=== PATIENT | male | born 1995 | race Caucasian/White ===

== ENCOUNTER 2019-09-07 16:36 | Outpatient (CLI) | payer OTHER, SELFPAY ==
--- NOTE | 2019-09-07 17:12 | XRR_ITS ---
PROCEDURE INFORMATION: Exam: XR Chest, 2 Views Exam date and time: 09/07/2019 5:12 PM Age: 23 years old Clinical indication: Patient HX: Cough / vomiting since July 13; Additional info: Bronchitis TECHNIQUE: Imaging protocol: XR of the chest Views: 2 views. COMPARISON: No relevant prior studies available. FINDINGS: Lungs: Unremarkable. No consolidation. Pleural space: Unremarkable. No pleural effusion. No pneumothorax. Heart/Mediastinum: Unremarkable. No cardiomegaly. Bones/joints: Unremarkable. XR/XR chest 2V* [id number] IMPRESSION: No acute findings.
== END 2019-09-07 16:37 | disposition home or self-care (01) ==
LOC: RAD 16:40
PROVIDERS: Family Provider Nurse Practitioner Family; PCP Nurse Practitioner Family; Visit Provider Family Medicine
DX: J40 Bronchitis, not specified as acute or chronic (principal)
CPT/HCPCS: 71046

== ENCOUNTER → 2019-10-06 14:42 | Outpatient (BNVA) | payer OTHER, SELFPAY | PROVIDERS: Visit Provider Nurse Practitioner Psychiatric/Mental Health | DX: F33.1 Major depressive disorder, recurrent, moderate (principal); F84.0 Autistic disorder | CPT/HCPCS: 99213 ==

== ENCOUNTER → 2019-12-31 07:19 | Outpatient (BNVA) | payer OTHER, SELFPAY | PROVIDERS: Visit Provider Nurse Practitioner Psychiatric/Mental Health | DX: F33.1 Major depressive disorder, recurrent, moderate (principal); F84.0 Autistic disorder | CPT/HCPCS: 99213 ==

== ENCOUNTER → 2020-02-09 07:28 | Outpatient (BNVA) | payer OTHER, SELFPAY | PROVIDERS: Visit Provider Nurse Practitioner Psychiatric/Mental Health | DX: F33.1 Major depressive disorder, recurrent, moderate (principal); F84.0 Autistic disorder; F33.2 Major depressive disorder, recurrent severe without psychotic features; F41.1 Generalized anxiety disorder | CPT/HCPCS: 99213 ==

== ENCOUNTER → 2020-05-03 07:27 | Outpatient (BNVA) | payer SELFPAY | PROVIDERS: Visit Provider Nurse Practitioner Psychiatric/Mental Health | DX: F33.1 Major depressive disorder, recurrent, moderate (principal); F84.0 Autistic disorder | CPT/HCPCS: 99213 ==

== ENCOUNTER → 2020-11-18 07:58 | Outpatient (BNVA) | payer OTHER, SELFPAY | PROVIDERS: Visit Provider Nurse Practitioner Psychiatric/Mental Health | DX: Z79.899 Other long term (current) drug therapy (principal) | CPT/HCPCS: 80053; 80061; 83036 ==

== ENCOUNTER 2021-03-09 02:41 | Emergency (ER) | payer SELFPAY ==
[2021-03-09 02:45] VITALS: BP 130/82; PULSE 93; RESP 16; TEMP 36.8; O2SAT 99; BMI 26.6
--- NOTE | 2021-03-09 02:51 | ED_ITS ---
HPI - General Adult General: Chief complaint: COVID symptoms Stated complaint: Flem\Running Nose\Cough\ Time Seen by Provider: 03/09/21 02:48 History of Present Illness: HPI narrative: This patient is a 25-year-old male who presents to the emergency department complaint of sore throat and cough tonight. Patient states he is had some phlegm in his cough. Patient states he just returned from a family member's . Started having low-grade temperatures today. Will do medical evaluation treat as needed Onset (ago): day(s) Radiation: non-radiation Severity: mild Associated symptoms: Deny chest pain, dyspnea, headache(s), nausea, rash, palpitations or vomiting Review of Systems General: Reports: 10 or more systems reviewed and unremarkable except in HPI and below Const: Denies: fever(s), chills, body aches or fatigue Eyes: Denies: change in vision or blurry vision ENMT: Reports: throat pain; Denies: hoarseness or mouth pain Card: Denies: chest pain, palpitations, irregular heart rhythm, edema, swelling of feet/ankles or lightheadedness Resp: Reports: non-productive cough; Denies: dyspnea, productive cough, wheezing or pain on inspiration GI: Denies: abdominal pain, nausea or vomiting : Denies: flank pain, dysuria, urinary frequency, urinary urgency or urinary hesitancy Musc: Denies: neck pain, back pain, extremity pain, extremity swelling, joint pain, joint swelling, joint redness, joint warmth or limited range of motion Skin/Breast: Denies: rash, pruritus, erythema or skin tenderness Neuro: Denies: headache(s), numbness in extremities or weakness in extremities Psych: Denies: anxiety or depression PFSH ED PFSH: Medical History Autism spectrum disorder, requiring support, without accompanying language impairment, with accompanying intellectual disability Chronic post-traumatic stress disorder Generalized anxiety disorder Major depressive disorder, recurrent episode, moderate with anxious distress Social History Smoking and tobacco status: former smoker Physical Exam Const: COMMON NORMALS: no acute distress, average body habitus, patient oriented x3, no limitations, healthy appearing, alert and well nourished HENMT: COMMON NORMALS: normocephalic, atraumatic, hearing grossly normal bilaterally, external ears normal, EAC's normal, TM's normal bilaterally, Normal external nose present, Normal nasal mucous membranes and turbinates present, moist oral mucous membranes, oropharynx normal, dentition normal and gingiva normal HEAD & SCALP: normocephalic and atraumatic NOSE: Normal external nose present and Normal nasal mucous membranes and turbinates present EXTERNAL EAR: Yes external ears normal EXTERNAL AUDITORY CANAL: EAC's normal TYMPANIC MEMBRANE: TM's normal bilaterally Neck/C-Spine: COMMON NORMALS: full ROM, no lymphadenopathy, supple, no meningeal signs, no JVD, Thyroid normal and No carotid bruits THYROID: Thyroid normal Chest: COMMONS NORMALS: normal inspection of the chest, normal palpation of entire chest wall, normal inspection of the breasts and normal palpation of the breasts Breast/axilla inspection: Yes normal inspection of the breasts BREAST/AXILLA PALPATION: Yes normal palpation of the breasts Resp: COMMON NORMALS: normal respiratory effort, No retractions, No use of accessory muscles, clear to auscultation bilaterally and percussion normal AUSCULTATION: clear to auscultation bilaterally PERCUSSION: percussion normal Cardio: COMMON NORMALS: no JVD, regular rate, regular rhythm, S1 normal heart sound present, S2 normal heart sound present, No gallops present (Cardio), No clicks present (Cardio), No murmurs present (Cardio), No rub (Cardio) and Peripheral pulses 2+ throughout RATE: regular rate RHYTHM: regular rhythm HEART SOUNDS: S1 normal heart sound present and S2 normal heart sound present PERIPHERAL PULSES: Peripheral pulses 2+ throughout GI: COMMON NORMALS: Normal to inspection, nondistended, normoactive bowel sounds present, Soft to palpation, non-tender, No hepatosplenomegaly present, no masses and no bruits PALPATION: Yes Soft to palpation and Yes No hepatosplenomegaly present : COMMON NORMALS: Yes no CVA tenderness BLADDER/KIDNEY EXAM: Yes no CVA tenderness Back/Pelvis: COMMON NORMALS: no CVA tenderness, thoracic and lumbar spine normal to inspection, no thoracic nor lumbar tenderness, thoraco-lumbar ROM normal and straight leg raise negative bilaterally Extremity: COMMON NORMALS: normal to inspection, full ROM, capillary refill normal, no joint enlargement, no clubbing, cyanosis or edema, no calf tenderness and no pedal edema Neuro: COMMON NORMALS: patient oriented x3 SENSORIUM/ORIENTATION: Yes alert MENINGEAL SIGNS: Yes no meningeal signs Course Reevaluation(s): Reevaluation #1: Negative for acute findings. Negative Covid. Patient has a viral upper respiratory infection. Encourage p.o. fluids cool-mist humidifier and [id number] antihistamines as needed. Follow-up with PCP in 2 to 3 days as needed Time: 03:17 Vital Signs: Vital signs: Vital Signs Temperature 98.3 F 03/09/21 02:45 Pulse Rate 93 03/09/21 02:45 Respiratory Rate 16 03/09/21 02:45 Blood Pressure 130/82 03/09/21 02:45 Pulse Oximetry 99 03/09/21 03:01 MDM - General Adult MDM Narrative: Medical decision making narrative: Negative for acute findings. Negative Covid. Patient has a viral upper respiratory infection. Encourage p.o. fluids cool-mist humidifier and [id number] antihistamines as needed. Follow-up with PCP in 2 to 3 days as needed Medical Records: Attestation: I reviewed the patient's medical records. Lab Data: Attestation: I reviewed the patient's lab results. Labs: Lab Results 03/09/21 Range/Units 02:52 SARS-CoV-2 Ag (Rap id) Negative (Negative) Discharge Plan Discharge Patient Disposition: Home Clinical Impression: Upper respiratory infection Condition: Stable Prescriptions: No Action quetiapine [Seroquel] 50 mg tablet 50 mg PO .bedtime Qty: 30 RF: 2 quetiapine [Seroquel] 25 mg tablet 25 mg PO DAILY PRN (Reason: anxiety/agitation) Qty: 30 RF: 1 Discharge Orders: Discharge ED (Routine); Ordered 03/09/21 Ordered By: Corey Armstrong Discharge Diet: Advance as tolerated Discharge Activity: Resume usual activity Patient Instructions: Opioid Safety Activity Restrictions/Additional Instructions: Negative Covid. Patient has a viral upper respiratory infection. Encourage p.o. fluids cool-mist humidifier and [id number] antihistamines as needed. Follow-up with PCP in 2 to 3 days as needed Coding Level of Care Code ED Front End Developer Javascript Html Css for Chg Fwd Exam Comprehensive
[2021-03-09 03:01] VITALS: O2SAT 99
[2021-03-09 03:15] LABS: SARS Covid-2 Antigen Negative (Negative)
[2021-03-09 03:21] LABS: Rapid Strep A Test Negative (Negative)
[2021-03-09 03:23] VITALS: BP 131/86; PULSE 81; RESP 18; O2SAT 99
== END 2021-03-09 03:24 | disposition home or self-care (01) ==
PROVIDERS: Emergency Provider Emergency Medicine
DX: J06.9 Acute upper respiratory infection, unspecified (principal); Z87.891 Personal history of nicotine dependence
CPT/HCPCS: 87081; 87426; 87880; 99282

== ENCOUNTER → 2022-04-02 09:14 | Outpatient (BNVA) | payer OTHER, SELFPAY | PROVIDERS: PCP Family Medicine; Visit Provider Nurse Practitioner Psychiatric/Mental Health | DX: Z03.89 Encounter for observation for other suspected diseases and conditions ruled out (principal); F84.0 Autistic disorder; F33.1 Major depressive disorder, recurrent, moderate; F41.1 Generalized anxiety disorder; F43.12 Post-traumatic stress disorder, chronic | CPT/HCPCS: 80053; 84443 ==

== ENCOUNTER 2022-11-23 07:40 | Emergency (ER) | payer SELFPAY ==
[2022-11-23 07:52] VITALS: BP 136/80; PULSE 75; RESP 16; TEMP 36.7; O2SAT 96
--- NOTE | 2022-11-23 08:02 | W.ED.SKABFB ---
HPI - Skin/Abscess/Foreign Bdy General: Chief complaint: Skin/Abscess/Foreign Body Stated complaint: rash on arm and stomach Time Seen by Provider: 11/23/22 07:41 History of Present Illness: Patient is a 27-year-old male comes to the ED with a rash. Rash started approximately 8 days ago. It started out on his right elbow region and then spread throughout his right forearm and is on his left forearm now as well. Rash is also spread to right side of abdomen. Rash is pruritic but denies any pain with rash. He states that when the rash gets a little warm it seems to flareup more. He was out walking on his property before rash started and could have been exposed to some plant. Patient also states that he recently changed body wash soap before rash started as well. Denies any lip or tongue swelling, throat tightening, shortness of breath, bladder or bowel symptoms. Associated symptoms: Deny chills, fever(s), nausea or vomiting Review of Systems Const: Denies: fever(s), chills or fatigue Eyes: Denies: change in vision or eye discomfort ENMT: Denies: throat pain, odynophagia, nasal discharge or nasal congestion Card: Denies: chest pain, palpitations, edema, swelling of feet/ankles, dyspnea on exertion or orthopnea Resp: Denies: dyspnea, productive cough or non-productive cough GI: Denies: abdominal pain, nausea, vomiting, diarrhea, constipation or hematochezia : Denies: flank pain, difficulty urinating, dysuria or hematuria Musc: Denies: neck pain, back pain or extremity swelling Skin/Breast: Reports: rash and pruritus; Denies: new lesions Neuro: Denies: headache(s), numbness in extremities or weakness in extremities PFS ED PFSH: Medical History (Updated 11/23/22 @ 08:46 by JENA Perez) Autism spectrum disorder, requiring support, without accompanying language impairment, with accompanying intellectual disability Chronic post-traumatic stress disorder Generalized anxiety disorder Major depressive disorder, recurrent episode, moderate with anxious distress No pertinent family history Psychiatric care Social History Smoking and tobacco status: former smoker Physical Exam Const: COMMON NORMALS: patient oriented x3 HENMT: COMMON NORMALS: normocephalic HEAD & SCALP: normocephalic MOUTH: Normal oral and palatal mucosa present THROAT: posterior oropharynx normal and uvula midline Neck/C-Spine: COMMON NORMALS: supple GENERAL: Yes normal visual inspection Resp: COMMON NORMALS: normal respiratory effort, No retractions, No use of accessory muscles and clear to auscultation bilaterally AUSCULTATION: clear to auscultation bilaterally Cardio: COMMON NORMALS: regular rate, regular rhythm, S1 normal heart sound present, S2 normal heart sound present, No gallops present (Cardio), No clicks present (Cardio), No murmurs present (Cardio) and Peripheral pulses 2+ throughout RATE: regular rate RHYTHM: regular rhythm HEART SOUNDS: S1 normal heart sound present and S2 normal heart sound present PERIPHERAL PULSES: Peripheral pulses 2+ throughout GI: COMMON NORMALS: Normal to inspection, nondistended, normoactive bowel sounds present, Soft to palpation, non-tender and no masses PALPATION: Yes Soft to palpation : COMMON NORMALS: Yes no CVA tenderness BLADDER/KIDNEY EXAM: Yes no CVA tenderness Back/Pelvis: COMMON NORMALS: no CVA tenderness Extremity: NARRATIVE EXTREMITY EXAM: Erythemic and raised maculopapular rash that is pruritic and on bilateral forearms. GENERAL: Yes normal exam except as noted Neuro: COMMON NORMALS: patient oriented x3 GAIT: Yes Normal gait present Skin: NARRATIVE SKIN EXAM: Erythemic and raised maculopapular rash that is pruritic and on bilateral forearms. Right side of abdomen. Findings suggestive of contact dermatitis. GENERAL SKIN EXAM: dry skin Course Vital Signs: Vital signs: Vital Signs Temperature 98.0 F 11/23/22 08:36 Pulse Rate 75 11/23/22 08:36 Respiratory Rate 16 11/23/22 08:36 Blood Pressure 136/80 11/23/22 08:36 Pulse Oximetry 96 11/23/22 08:36 Oxygen Delivery Me thod 11/23/22 07:52 MDM - Skin/Abscess/Foreign Bdy Medicial Decision Making Patient is a 27-year-old male comes to the ED with pruritic rash on bilateral forearms and right side of abdomen. Patient did recently change body wash soap. Denies any shortness of breath, throat tightening, lip or tongue swelling. Vitals stable. Patient appears nontoxic in no acute distress or pain. Erythemic and raised maculopapular rash that is pruritic and on bilateral forearms. Right side of abdomen. Findings suggestive of contact dermatitis. Patient was given IM Kenalog here in the ED. He was stable for discharge home and diagnosed with contact dermatitis. Told to follow-up with PCP within the next week for reevaluation. He was sent home with a prescription for some steroid cream to help with the rash as well. Patient understood and agreed with plan. Discharge Plan Discharge Patient Disposition: Home Clinical Impression: Contact dermatitis Qualifiers: Contact dermatitis type: unspecified Contact dermatitis trigger: unspecified trigger Qualified Code(s): L25.9 - Unspecified contact dermatitis, unspecified cause Condition: Stable Prescriptions: New triamcinolone acetonide 0.1 % cream 1 applic topical BID PRN (Reason: rash) Qty: 80 0RF No Action lithium carbonate 300 mg capsule 300 mg PO BID Qty: 30 1RF Rx Instructions: Take one capsule twice per day, last dose at bedtime olanzapine [Zyprexa Zydis] 5 mg tablet,disintegrating 5 mg PO BID PRN (Reason: severe agitation) Qty: 60 2RF Rx Instructions: Take one tablet twice per day as needed for severe agitation Discharge Orders: Discharge ED (Routine); Ordered 11/23/22 Ordered By: Roger Barry Referrals: Yo Whiteside MD [Primary Care Provider] - Discharge Diet: Regular Discharge Activity: Increase activity as tolerated Activity Restrictions/Additional Instructions: Follow-up with medical provider as directed in the next 5 to 7 days for reevaluation. Take medications as prescribed. Return to the ER or your medical provider if condition worsens. Please read and understand discharge instructions. Thank you for choosing [facility] for your healthcare needs today. Please realize this is an emergency room and that we are providing you with a medical screening exam and this may not be complete and all inclusive of all the testing and or work up that you may need to determine your ailment or severity of your illness. It is very important that you follow up as instructed or that you return to the Emergency Department should you have concerns or if your condition changes or worsens in any way. Coding Level of Care Code ED Pack Mule Worker for Tiffani Kulkarni
[2022-11-23] MEDS: triamcinolone 40 mg/mL SDV IM (08:30)
[2022-11-23 08:36] VITALS: BP 136/80; PULSE 75; RESP 16; TEMP 36.7; O2SAT 96
== END 2022-11-23 08:37 | disposition home or self-care (01) ==
PROVIDERS: Emergency Provider Physician Assistant; PCP Family Medicine
DX: L25.9 Unspecified contact dermatitis, unspecified cause (principal); F84.0 Autistic disorder; Z87.891 Personal history of nicotine dependence
CPT/HCPCS: 96372; 99284; J3301

== ENCOUNTER 2023-11-09 16:58 | Emergency (ER) | payer SELFPAY ==
[2023-11-09 17:30] VITALS: BP 131/80; PULSE 107; RESP 20; TEMP 36.2; O2SAT 95; BMI 27.3
--- NOTE | 2023-11-09 19:14 | XRR_ITS ---
PROCEDURE INFORMATION: Exam: XR Left Forearm Exam date and time: 11/09/2023 6:42 PM Age: 28 years old Clinical indication: Injury or trauma; Other: Pain to lt forearm; Patient HX: Lt elbow/mid forearm pain after fall; No previous injury TECHNIQUE: Imaging protocol: Radiologic exam of the left forearm. Views: 2 views. COMPARISON: No relevant prior studies available. FINDINGS: Bones/joints: No evidence of acute fracture or dislocation. No erosive disease. No significant degenerative change. Soft tissues: No radiopaque foreign body or soft tissue gas. XR/XR forearm LT 2V [id number] IMPRESSION: No acute bony injury.
--- NOTE | 2023-11-09 19:57 | ED_ITS ---
HPI - Extremity Problem General: Chief complaint: Extremity Injury, Upper Stated complaint: left arm pain, fall Time Seen by Provider: 11/09/23 19:08 History of Present Illness: 28-year-old male who fell earlier today on outstretched hands. He notes that his elbow had a bulge in it, and he had to forcefully extend his elbow to put it back in place . He complains of elbow pain as well as forearm pain down to the wrist. No hand pain. No swelling. No deformity currently. No numbness. Associated symptoms: Reports rash (Abrasion right knee); Deny chest pain or fever(s) Review of Systems Const: Denies: fever(s) Card: Denies: chest pain Resp: Denies: dyspnea Musc: Denies: neck pain Skin/Breast: Reports: rash (Abrasion right knee) Neuro: Denies: headache(s) [facility] ED PFSH: Medical History No pertinent family history Chronic post-traumatic stress disorder Generalized anxiety disorder Major depressive disorder, recurrent episode, moderate with anxious distress Autism spectrum disorder, requiring support, without accompanying language impairment, with accompanying intellectual disability Social History Smoking and tobacco/nicotine status: former use of tobacco/nicotine Physical Exam Const: COMMON NORMALS: no acute distress GENERAL APPEARANCE: cooperative; not ill appearing HENMT: COMMON NORMALS: normocephalic, atraumatic and Normal external nose present HEAD & SCALP: normocephalic and atraumatic FACE & SINUS: normal facial exam NOSE: Normal external nose present Eye: COMMON NORMALS: Equal, round and reactive pupils present and EOMs intact bilaterally PUPIL: Yes Equal, round and reactive pupils present Neck/C-Spine: GENERAL: Yes trachea midline Chest: CHEST: Yes Symmetrical chest wall rise Resp: COMMON NORMALS: normal respiratory effort, No use of accessory muscles and clear to auscultation bilaterally AUSCULTATION: clear to auscultation bilaterally Cardio: COMMON NORMALS: regular rate and regular rhythm RATE: regular rate RHYTHM: regular rhythm Extremity: NARRATIVE EXTREMITY EXAM: Mild tenderness to left elbow. No deformity. No significant swelling. No deformity of the forearm. Mild tenderness over the distal radius no swelling. Pulses and sensation are normal. Course Vital Signs: Vital signs: Vital Signs Temperature 97.2 F L 11/09/23 17:30 Pulse Rate 107 H 11/09/23 17:30 Respiratory Rate 18 11/09/23 20:09 Blood Pressure 131/80 11/09/23 17:30 Pulse Oximetry 95 11/09/23 17:30 MDM - Extremity (Nontraumatic) Medical Decision Making 28-year-old male with left forearm pain following a fall. X-ray shows nondisplaced radial neck fracture, interestingly without significant elbow effusion. He will be placed in a posterior splint, allowed to follow-up with orthopedics. Films read as negative by radiology, patient is splinted regardless, as there does appear to be an abnormality of the radial neck. Lab Data Radiology Impressions Forearm X-Ray 11/09/23 19:14 IMPRESSION: No acute bony injury. All radiology interpretation(s) finalized by discharge Discharge Plan Discharge Patient Disposition: Home Clinical Impression: Closed fracture of neck of left radius Qualifiers: Encounter type: initial encounter Fracture alignment: nondisplaced Qualified Code(s): S52.135A - Nondisplaced fracture of neck of left radius, initial encounter for closed fracture Condition: Stable Prescriptions: New hydrocodone-acetaminophen 5-325 mg tablet 1 tab PO Q8H PRN (Reason: pain) Qty: 7 0RF No Action olanzapine [Zyprexa Zydis] 5 mg tablet,disintegrating 5 mg PO BID PRN (Reason: severe agitation) Qty: 60 6RF Rx Instructions: Take one tablet twice per day as needed for severe agitation triamcinolone acetonide 0.1 % cream 1 applic topical BID PRN (Reason: rash) Qty: 80 0RF Discharge Orders: Discharge ED (Routine); Ordered 11/09/23 Ordered By: Juan Quintero Referrals: Shady Gaviria DO [Physician] - 4-7 days Patient Instructions: Elbow Fracture (ED), Opioid Safety, Pain Management Activity Restrictions/Additional Instructions: Wear the splint until seen by orthopedics. Call on Saturday for an appointment at the number above. Ice for pain and swelling. Pain medication as directed. Use Tylenol for pain that is not as severe. Coding Level of Care Code ED Human Factors Advisor Lead for Tiffani Kulkarni
[2023-11-09 20:09] VITALS: RESP 18
[2023-11-09] MEDS: oxyCODONE-APAP 5-325 mg Tablet 2 TAB PO (20:09)
== END 2023-11-09 21:01 | disposition home or self-care (01) ==
PROVIDERS: Emergency Provider Emergency Medicine
DX: S52.135A Nondisplaced fracture of neck of left radius, initial encounter for closed fracture (principal); Z87.891 Personal history of nicotine dependence; S80.211A Abrasion, right knee, initial encounter; W19.XXXA Unspecified fall, initial encounter
CPT/HCPCS: 29105; 73090; 99283

== ENCOUNTER → 2023-11-19 13:47 | Outpatient (BNVA) | payer SELFPAY | PROVIDERS: Referring Provider Orthopaedic Surgery; Visit Provider Orthopaedic Surgery | DX: S52.135A Nondisplaced fracture of neck of left radius, initial encounter for closed fracture (principal); V18.0XXA Pedal cycle driver injured in noncollision transport accident in nontraffic accident, initial encounter | CPT/HCPCS: 73090 ==

== ENCOUNTER 2024-12-06 02:17 | Emergency (ER) | payer OTHER, SELFPAY ==
--- NOTE | 2024-12-06 02:18 | XRR_ITS ---
PROCEDURE INFORMATION: Exam: XR Chest Exam date and time: 12/06/2024 2:39 AM Age: 29 years old Clinical indication: Pain; Chest pressure; Cough with chest discomfort; Additional info: Cp TECHNIQUE: Imaging protocol: Radiologic exam of the chest. Views: 1 view. COMPARISON: CR XR chest 2V* [id number] 09/07/2019 5:16 PM FINDINGS: Lungs: Small lung volumes. No consolidation. Pleural spaces: No pleural effusion. No pneumothorax. Heart/Mediastinum: Obscured inferior cardiac contour. Can not exclude cardiomegaly. Bones/joints: No acute findings. XR/XR chest 1V portable [id number] IMPRESSION: Small lung volumes. No consolidation.
[2024-12-06 02:20] VITALS: BP 129/93; PULSE 100; RESP 16; TEMP 36.1; O2SAT 95; BMI 33.4
--- NOTE | 2024-12-06 02:24 | ECG_ITS ---
[facility] Date: 2024-12-06 Pat Name: Elier Courtney Department: Room: Gender: Male Commercial Credit Reviewer: : 1995 Requested By: Caterina Gillette Order Number: [id number] Rohan MD: Marleen Grossman M.D. Measurements Intervals [place] Rate: 93 P: 119 IN: 134 QRS: 119 QRSD: 74 T: 1 QT: 328 QTc: 409 Interpretive Statements SINUS RHYTHM POSSIBLE LEFT ATRIAL ENLARGEMENT [-0.1mV P-WAVE IN V1/V2] No previous ECG available for comparison Electronically Signed On 12-06-2024 09:52:37 CDT by Marleen Grossman M.D. [email or web address]
--- NOTE | 2024-12-06 02:31 | ED_ITS ---
HPI - Nausea/Vomiting/Diarrhea 2 General: Chief complaint: Nausea/Vomiting/Diarrhea Stated complaint: n/v CP when coughing Time Seen by Provider: 12/06/24 02:18 Source: patient Mode of arrival: ambulatory Limitations: no limitations History of Present Illness: 29-year-old male who states he has not f elt well over the last week he has been having some cough congestion states that he did some cheeseburgers yesterday and today has been having vomiting. States that he is had some slight diarrhea as well as improved he denies any abdominal pain states has had some slight chest pain to the been sharp in nature denies any shortness of breath or fever Associated nausea: Yes Associated symtoms: Reports chest pain and nausea; Denies dysuria or headache(s) Related Data Previous Rx's ?Medication ?Instructions ?Recorded triamcinolone acetonide 0.1 % 1 applic topical BID PRN rash #80 11/23/22 topical cream grams olanzapine 5 mg disintegrating 5 mg PO BID PRN severe agitation 06/21/23 tablet (Zyprexa Zydis) #60 tabs hydrocodone 5 mg-acetaminophen 325 1 tab PO Q8H PRN pa in #7 tabs 11/08/24 mg tablet cetirizine 10 mg tablet (Zyrtec) 10 mg PO DAILY #30 ta bs 12/03/24 fluticasone propionate 50 2 spray intranasal BID PRN a llergy 12/03/24 mcg/actuation nasal symptoms #16 grams spray,suspension (Flonase Allergy Relief) promethazine-DM 6.25 mg-15 mg/5 mL 10 ml PO Q6H PRN co ugh #473 mL 12/03/24 oral syrup ondansetron 4 mg disintegrating 4 mg PO Q6H PRN nausea and 12/06/24 tablet vomiting #14 tabs Allergies Allergy/AdvReac Type Severity Reaction Status Date / Time No Known Allergies Allergy Verified 12/03/24 16:31 Review of Systems 2 Const: Denies: fever(s), chills, body aches or change in appetite ENMT: Denies: throat pain or dental pain Card: Reports: chest pain Resp: Reports: non-productive cough; Denies: dyspnea GI: Reports: nausea, vomiting and diarrhea; Denies: abdominal pain : Denies: dysuria Musc: Denies: neck pain or back pain Skin/Breast: Denies: rash Neuro: Denies: headache(s) PFSH ED 2 PFSH: Medical History No pertinent family history Chronic post-traumatic stress disorder Generalized anxiety disorder Major depressive disorder, recurrent episode, moderate with anxious distress Autism spectrum disorder, requiring support, without accompanying language impairment, with accompanying intellectual disability Social History Smoking and tobacco/nicotine status: never used tobacco/nicotine Course 2 Vital Signs: Vital signs: Vital Signs Temperature 97.0 F L 12/06/24 02:20 Pulse Rate 100 12/06/24 02:20 Respiratory Rate 16 12/06/24 02:20 Blood Pressure 129/93 12/06/24 02:20 Pulse Oximetry 95 12/06/24 02:20 Oxygen Delivery Me thod Room Air 12/06/24 02:20 MDM - Nausea/Vomiting/Diarrhea Medical Decision Making Patient presents here with likely upper respiratory infection along with vomiting he has been well-appearing here blood works normal exam is benign will prescribe Zofran patient stable for discharge follow-up PCP return if worsening. Medical Records I reviewed the patient's medical records. Lab Data I reviewed the patient's lab results. 12/06/24 02:30 12/06/24 02:30 Laboratory Results WBC 12.41 10^3/uL (3.29-11.43) H 12/06/24 02:30 RBC 5.64 10^6/uL (3.85-5.65) 12/06/24 02:30 Hgb 16.20 g/dL (11.27-16.99) 12/06/24 02:30 Hct 48.0 % (37-53) 12/06/24 02:30 MCV 85.1 fl (82-101) 12/06/24 02:30 MCH 28.7 pg (27-33) 12/06/24 02:30 MCHC 33.8 g/dL (30-55) 12/06/24 02:30 RDW 11.8 % (12.1-15.1) L 12/06/24 02:30 Plt Count 212 10^3/cmm (157-399) 12/06/24 02:30 MPV 10.2 fL (7.4-10.4) 12/06/24 02:30 Neut % (Auto) 69.4 % 12/06/24 02:30 Lymph % (Auto) 18.2 % 12/06/24 02:30 [place] % (Auto) 9.8 % 12/06/24 02:30 Eos % (Auto) 1.7 % 12/06/24 02:30 Baso % (Auto) 0.5 % 12/06/24 02:30 Neut # (Auto) 8.62 10^3/uL (1.8-7.7) H 12/06/24 02:30 Lymph # (Auto) 2.3 10^3/uL (0.8-4.8) 12/06/24 02:30 [place]et # (Auto) 1.2 10^3/uL (0.2-0.9) H 12/06/24 02:30 Eos # (Auto) 0.2 10^3/uL (0.0-0.8) 12/06/24 02:30 Baso # (Auto) 0.1 10^3/uL (0.0-0.1) 12/06/24 02:30 Nucleated RBC % (auto) 0 % 12/06/24 02:30 Nucleated RBCs # 0.0 /100WBC 12/06/24 02:30 Sodium 138 mmol/L (136-145) 12/06/24 02:30 Potassium 3.7 mmol/L (3.5-5.1) 12/06/24 02:30 Chloride 98 mmol/L (98-107) 12/06/24 02:30 Carbon Dioxide 26 mmol/L (22-29) 12/06/24 02:30 Anion Gap 17.7 (5-19) 12/06/24 02:30 BUN 12 mg/dL (6-20) 12/06/24 02:30 Creatinine 0.8 mg/dL (0.7-1.2) 12/06/24 02:30 GFR Calculation 112.8 mL/min (90-130) 12/06/24 02:30 Glucose 121 mg/dL (65-115) H 12/06/24 02:30 Calculated Osmolality 287 mOsm/kg (285-295) 12/06/24 02:30 Calcium 9.6 mg/dL (8.5-10.5) 12/06/24 02:30 Total Bilirubin 0.2 mg/dL (0.15-1.2) 12/06/24 02:30 AST 22 U/L (0-40) 12/06/24 02:30 ALT 36 U/L (0-41) 12/06/24 02:30 Alkaline Phosphatase 78 U/L (40-130) 12/06/24 02:30 Total Protein 8.3 g/dL (6.6-8.7) 12/06/24 02:30 Albumin 4.7 g/dL (3.5-5.2) 12/06/24 02:30 Globulin 3.6 g/dL (1.3-4.6) 12/06/24 02:30 Lipase 29 U/L (13-60) 12/06/24 02:30 All radiology interpretation(s) finalized by discharge EKG Data EKG 1: I personally reviewed and interpreted this EKG as follows: EKG interpretation date: 12/06/24 EKG interpretation time: 02:24 Interpretation: nsr hr [address] elevation qrs 74 qtc 379 Discharge Plan Discharge Patient Disposition: Home Clinical Impression: Vomiting, Upper respiratory infection Condition: Stable Prescriptions: New ondansetron 4 mg tablet,disintegrating 4 mg PO Q6H PRN (Reason: nausea and vomiting) Qty: 14 0RF No Action fluticasone propionate [Flonase Allergy Relief] 50 mcg/actuation spray,suspension 2 spray intranasal BID PRN (Reason: allergy symptoms) Qty: 16 0RF Rx Instructions: administer into each nostril cetirizine [Zyrtec] 10 mg tablet 10 mg PO DAILY Qty: 30 0RF promethazine-DM 6.25-15 mg/5 mL syrup 10 ml PO Q6H PRN (Reason: cough) Qty: 473 0RF olanzapine [Zyprexa Zydis] 5 mg tablet,disintegrating 5 mg PO BID PRN (Reason: severe agitation) Qty: 60 6RF Rx Instructions: Take one tablet twice per day as needed for severe agitation triamcinolone acetonide 0.1 % cream 1 applic topical BID PRN (Reason: rash) Qty: 80 0RF hydrocodone-acetaminophen 5-325 mg tablet 1 tab PO Q8H PRN (Reason: pain) Qty: 7 0RF Discharge Orders: Discharge ED (Routine); Ordered 12/06/24 Ordered By: Caterina Gillette Discharge Diet: Advance as tolerated Discharge Activity: Resume usual activity Patient Instructions: Upper Respiratory Infection (ED), Acute Nausea and Vomiting (ED) Print Language: [place]serratian Coding Level of Care Code ED Identity Access Management Architect for Tiffani Kulkarni
[2024-12-06 02:36] LABS: Basophils # 0.1 10^3/uL (0.0-0.1); Basophils % 0.5 %; Eosinophils # 0.2 10^3/uL (0.0-0.8); Eosinophils % 1.7 %; Lymphocytes # 2.3 10^3/uL (0.8-4.8); Lymphocytes % 18.2 %; Mean Corpuscular HGB Conc 33.8 g/dL (30-55); Mean Corpuscular Hemoglobin 28.7 pg (27-33); Mean Corpuscular Volume 85.1 fl (82-101); Mean Platelet Volume 10.2 fL (7.4-10.4); Monocytes # 1.2 10^3/uL (0.2-0.9); Monocytes % 9.8 %; Neutrophils # 8.62 10^3/uL (1.8-7.7); Neutrophils % 69.4 %; Nucleated Red Blood Cells % 0 %; Platelet Count 212 10^3/cmm (157-399); Red Blood Count 5.64 10^6/uL (3.85-5.65); Red Cell Distribution Width 11.8 % (12.1-15.1); White Blood Count 12.41 10^3/uL (3.29-11.43)
[2024-12-06] MEDS: ondansetron 2 mg/ML SDV 2 mL 4 MG IVP (02:40)
[2024-12-06 03:00] LABS: Alanine Aminotransferase 36 U/L (0-41); Albumin Level 4.7 g/dL (3.5-5.2); Alkaline Phosphatase 78 U/L (40-130); Anion Gap 17.7 (5-19); Aspartate Amino Transferase 22 U/L (0-40); Blood Urea Nitrogen 12 mg/dL (6-20); Calcium 9.6 mg/dL (8.5-10.5); Carbon Dioxide 26 mmol/L (22-29); Chloride 98 mmol/L (98-107); Globulin 3.6 g/dL (1.3-4.6); Glomerular Filtration Rate 112.8 mL/min (90-130); Glucose 121 mg/dL (65-115); Lipase 29 U/L (13-60); Osmolality Calculated 287 mOsm/kg (285-295); Potassium 3.7 mmol/L (3.5-5.1); Sodium 138 mmol/L (136-145); Total Bilirubin 0.2 mg/dL (0.15-1.2); Total Protein 8.3 g/dL (6.6-8.7)
[2024-12-06 03:56] VITALS: BP 129/93; PULSE 89; RESP 16; O2SAT 95
== END 2024-12-06 03:58 | disposition home or self-care (01) ==
PROVIDERS: Emergency Provider Emergency Medicine
DX: R11.10 Vomiting, unspecified (principal); J06.9 Acute upper respiratory infection, unspecified
CPT/HCPCS: 36415; 71045; 80053; 83690; 85025; 93005; 96374; 99285; J2405

== ENCOUNTER → 2025-07-06 13:41 | Outpatient (BNVA) | payer OTHER, SELFPAY | PROVIDERS: Visit Provider Nurse Practitioner Psychiatric/Mental Health | DX: F33.1 Major depressive disorder, recurrent, moderate (principal); F41.1 Generalized anxiety disorder; F84.0 Autistic disorder; Z79.899 Other long term (current) drug therapy | CPT/HCPCS: 80061; 83036 ==